=== PATIENT | male | born 1975 | race Caucasian/White ===

== ENCOUNTER 2018-07-15 01:58 | Emergency (ER) | payer OTHER ==
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
[2018-07-15 03:02] VITALS: BP 102/69; PULSE 76; TEMP 98; BMI 22.8
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
[2018-07-15] MEDS ORDERED: SODIUM CHLORIDE FOR INHALATION 3 ML VIAL.NEB IH ONE (03:13)
== END 2018-07-15 03:57 | disposition home or self-care (01) ==
LOC: JER 01:58
PROC: 3E0F7GC Introduction of Other Therapeutic Substance into Respiratory Tract, Via Natural or Artificial Opening (ICD-10-PCS; principal; 2018-07-15)
DX: T59.811A Toxic effect of smoke, accidental (unintentional), initial encounter (principal); J70.5 Respiratory conditions due to smoke inhalation; Y92.030 Kitchen in apartment as the place of occurrence of the external cause
CPT/HCPCS: 99281-25

== ENCOUNTER 2018-12-17 11:25 | Emergency (ER) | payer OTHER ==
[2018-12-17 11:32] VITALS: TEMP 98; BMI 21.6
[2018-12-17] MEDS ORDERED: FAMOTIDINE 20 MG/50 ML IVPB 20 MG/50 ML MG IVPB ONE ×2 (12:44→12:51)
[2018-12-17] MEDS ORDERED: ONDANSETRON *ODT* 4 MG TABLET SL ONE (12:44)
[2018-12-17] MEDS ORDERED: SODIUM CHLORIDE 1,000 ML IV STA (12:44)
[2018-12-17] MEDS ORDERED: ONDANSETRON *ODT* 4 MG TABLET ONE (12:51)
--- NOTE | 2018-12-17 13:08 | PDOC ---
History of Present Illness - General Chief Complaint: Pain Stated Complaint: ABD PAIN Time Seen by Provider: 12/17/18 12:18 History Source: Patient Exam Limitations: Clinical Condition - History of Present Illness Initial Comments: 12/17/18 13:02 Patient with past medical history of GERD presented with complaint of 4-day history of epigastric pain with bubbling sound in her whole abdomen and now with nausea since yesterday. Patient reports started having shortness of breath 4 days ago when she started having epigastric pain was seen in [facility] emergency room which chest x-ray and lab work done was normal. Patient brings with him lab results which shows normal CBC and chemistry and d- dimer labs. Patient reports he was prescribed omeprazole from the ED which he started taking by stop due to making him anxious. Patient reported feeling anxious stopped after stopping omeprazole. Patient denies vomiting, fever, chills, diarrhea, constipation, chest pain, shortness of breath, dizziness or weakness. Patient report has not been able to eat anything since yesterday due to loss of appetite. Patient has appointment with GI tomorrow but could not wait due to abdominal discomfort Is this a multiple visit Asthma Patient?: No Past History - Past Medical History Allergies/Adverse Reactions: Allergies Allergy/AdvReac Type Severity Reaction Status Date / Time No Known Allergies Allergy Verified 07/15/18 03:02 Home Medications: Ambulatory Orders Mag Hydrox/Aluminum Hyd/Simeth [Maalox Advanced Suspension] 30 ml PO Q8H PRN # 200 ml 12/17/18 Ondansetron [Zofran -] 4 mg PO Q8H PRN #10 tablet 12/17/18 Pantoprazole Sodium [Protonix -] 20 mg PO DAILY #7 tablet.ec 12/17/18 Asthma: Yes (childhood, resolved) COPD: No GI Disorders: Yes (GERD) - Immunization History Immunization Up to Date: Yes - Psycho Social/Smoking Cessation Hx Smoking Status: No Smoking History: Never smoked Have you smoked in the past 12 months: No Number of Cigarettes Smoked Daily: 0 Cigars Per Day: 0 Information on smoking cessation initiated: No Hx Alcohol Use: No Drug/Substance Use Hx: No Substance Use Type: None Review of Systems - Review of Systems Able to Perform ROS?: Yes Is the patient limited Pashto proficient: No Constitutional: No: See HPI, Chills, Malaise, Weakness HEENTM: No: Symptoms Reported, See HPI, Eye Pain, Blurred Vision, Tearing, Recent change in vision, Double Vision, Cataracts, Ear Pain, Ocular Prothesis, Ear Discharge, Nose Pain, Nose Congestion, Tinnitus, Nose Bleeding, Hearing Loss , Throat Pain, Throat Swelling, Mouth Pain, Dental Problems, Difficulty Swallowing, Mouth Swelling, Other Respiratory: No: Symptoms reported, See HPI, Cough, Orthopnea, Shortness of Breath, SOB with Exertion, SOB at Rest, Stridor, Wheezing, Productive cough, Hemoptysis, Other Cardiac (ROS): No: Symptoms Reported, See HPI, Chest Pain, Edema, Irregular Heart Rate, Lightheadedness, Palpitations, Syncope, Chest Tightness, Other ABD/GI: Yes: Symptoms Reported, See HPI, Nausea, Poor Appetite, Abdominal cramping (epigastric). No: Abdominal Distended, Abd. Pain w/ defecation, Blood Streaked Bowels, Constipated, Diarrhea, Difficulty Swallowing, Poor Fluid Intake , Rectal Bleeding, Vomiting, Indigestion : No: Burning, Discharge, Frequency, Urgency All Other Systems: Reviewed and Negative *Physical Exam - Vital Signs Last Vital Signs Temp Pulse Resp BP Pulse Ox 98.0 F 89 17 125/80 99 12/17/18 11:29 12/17/18 11:29 12/17/18 11:29 12/17/18 11:29 12/17/18 11:29 - Physical Exam Comments: 12/17/18 13:06 GENERAL: Well developed, well nourished. Awake and alert. No acute distress. NECK: Supple. Full ROM. CARDIOVASCULAR: Regular rate and rhythm. No murmurs, rubs, or gallops. Distal pulses are 2+ and symmetric. PULMONARY: No evidence of respiratory distress. Lungs clear to auscultation bilaterally. No wheezing, rales or rhonchi. ABDOMINAL: Soft. Mild epigastric tenderness on deep palpation. Non-distended. No rebound or guarding. No organomegaly. Normoactive bowel sounds. MUSCULOSKELETAL Normal range of motion at all joints. SKIN: Warm and dry. Normal capillary refill. No rashes. No cyanosis NEUROLOGICAL: Alert, awake, appropriate. Gait is normal without ataxia. PSYCHIATRIC: Cooperative. Good eye contact. Appropriate mood General Appearance: Yes: Nourished, Appropriately Dressed. No: Apparent Distress ED Treatment Course - LABORATORY CBC & Chemistry Diagram: 12/17/18 12:46 12/17/18 12:46 - RADIOLOGY Radiology Studies Ordered: Category Date Time Status ABDOMEN US -LIMITED [US] Stat Ultrasound 12/17/18 12:44 Ordered Medical Decision Making - Medical Decision Making 12/17/18 13:06 Patient with history of GERD presented with complaint of 4-day history of persistent epigastric pain with nausea and episode of shortness of breath 4 days ago which have resolved. Patient seen in another ED 4 days ago for symptoms with no findings. Patient have GI appointment tomorrow. Exam significant for mild tenderness to epigastric region on deep palpation without guarding or rebound otherwise normal exam. Normal bowel sounds diffusely. Symptoms likely GERD versus gastritis versus less likely cholecystitis. CBC, CMP, lipase level ordered. Abdominal ultrasound ordered to rule out cholecystitis. IV hydration with 1 L normal saline and Pepcid 20 mg IV ordered for epigastric pain. Zofran 4 mg sublingual ordered for nausea. Treat based on lab and imaging results 12/17/18 15:43 CBC and chemistry unremarkable. Abdominal ultrasound pending reading. Patient was improvement in pain post IV hydration and IV Pepcid 12/17/18 16:10 abd U/S unremarkable. Patient symptoms likely gastritis and stable for discharge on protonix and maalox as needed for abd discomfort with GI f/u tomorrow as scheduled Discharge - Discharge Information Problems reviewed: Yes Clinical Impression/Diagnosis: Nausea Abdominal pain Qualifiers: Abdominal location: epigastric Qualified Code(s): R10.13 - Epigastric pain Condition: Stable Disposition: HOME - Admission No - Additional Discharge Information Prescriptions: Mag Hydrox/Aluminum Hyd/Simeth [Maalox Advanced Suspension] 30 ml PO Q8H PRN # 200 ml PRN Reason: abdominal discomfort Ondansetron [Zofran -] 4 mg PO Q8H PRN #10 tablet PRN Reason: vomiting Pantoprazole Sodium [Protonix -] 20 mg PO DAILY #7 tablet.ec - Follow up/Referral Referrals: Mendoza Fry MD [Staff Physician] - - Patient Discharge Instructions Additional Instructions: Your labs and abdominal ultrasound was normal. Your symptoms could be caused by gastritis. Take prescribed medication as prescribed. Follow-up with GI doctor tomorrow as scheduled. Increase fluid intake. - Post Discharge Activity
[2018-12-17 13:25] LABS: BASO % 0.5 % (0-2.0); EOS % 0.5 % (0-4.5); HEMATOCRIT 39.4 % (35.4-49); HEMOGLOBIN 13.4 GM/dL (11.7-16.9); LYMPH % 23.3 % (8-40); MCH 34.1 pg (25.7-33.7); MCHC 34.1 g/dl (32.0-35.9); MEAN PLT VOLUME 8.6 fl (7.5-11.1); NEUT % 67.7 % (42.8-82.8); PLATELET COUNT 315 K/MM3 (134-434); RBC 3.94 M/mm3 (4.00-5.60); RDW 11.9 % (11.9-15.9); WHITE BLOOD COUNT 4.3 K/mm3 (4.0-10.0)
[2018-12-17 13:52] LABS: ALBUMIN 4.6 g/dl (3.4-5.0); BILIRUBIN,TOTAL 0.9 mg/dL (0.2-1); BLOOD UREA NITROGEN 9.8 mg/dL (7-18); CALCIUM 9.5 mg/dL (8.5-10.1); CREATININE 0.8 mg/dL (0.55-1.3); POTASSIUM 3.9 mmol/L (3.5-5.1); TOT PROT 7.6 g/dl (6.4-8.2)
[2018-12-17 16:03] VITALS: BP 108/66; PULSE 77
== END 2018-12-17 16:03 | disposition home or self-care (01) ==
LOC: JER 11:25
PROC: 3E0337Z Introduction of Electrolytic and Water Balance Substance into Peripheral Vein, Percutaneous Approach (ICD-10-PCS; principal; 2018-12-17)
DX: R10.13 Epigastric pain (principal); K21.9 Gastro-esophageal reflux disease without esophagitis; J45.909 Unspecified asthma, uncomplicated
CPT/HCPCS: 36415; 76705-TC; 80053; 83690; 85025; 99283-25; J7030; Q0162

== ENCOUNTER 2019-11-20 20:14 | Emergency (ER) | payer OTHER ==
[2019-11-20 20:22] VITALS: TEMP 98.8; BMI 22.8
--- NOTE | 2019-11-20 20:39 | PDOC ---
History of Present Illness - General Chief Complaint: Lightheaded Stated Complaint: LIGHTHEADED/EVALUATION Time Seen by Provider: 11/20/19 20:39 History Source: Patient Exam Limitations: No Limitations - History of Present Illness Initial Comments: 11/20/19 20:47 HPI: This is a 44 y/o male with no significant PMH presenting to the ED today because of an episode of "lightheadedness" that began 30 minutes prior to arrival to the ED. He was bringing pizzas into his family's house and when he was staring at the TV he said everything started to feel "strange." He said it felt like things might started to spin. He denied any accompanying chest pain, palpitations, SOB, or headache at the time. He drove himself home, but when he got there he started feeling worse. He didn't feel like he could drive anymore, and called his sister to bring him to the ED. He has had these episodes before and had been worked up for them, and admits to an anxiety component. Today's episode was similar to previous episodes, except with previous episodes he has been able to stop them. He was worked up a year ago for similar symptoms. He saw an ENT who said that it wasn't vertigo. He also saw neuro who did a CT scan which came back normal. Carotid doppler was also negative. He had many episodes at the beginning of this year when he had Covid. ROS: GENERAL/CONSTITUTIONAL: No fever/chills. No weakness. HEAD, EYES, EARS, NOSE AND THROAT: No change in vision. . CARDIOVASCULAR: No chest pain or shortness of breath. RESPIRATORY: No cough, wheezing, or hemoptysis. GASTROINTESTINAL: No nausea, vomiting, diarrhea or constipation. GENITOURINARY: No dysuria, frequency, or change in urination. MUSCULOSKELETAL: No joint or muscle swelling or pain. No neck or back pain. SKIN: No rash NEUROLOGIC: No headache, vertigo, loss of consciousness, or change in strength/sensation. ENDOCRINE: No increased thirst. No abnormal weight change. HEMATOLOGIC/LYMPHATIC: No anemia, easy bleeding, or history of blood clots. ALLERGIC/IMMUNOLOGIC: No hives or skin allergy. PMH: Denied PSx: Denied Social Hx: Denied etoh, tobacco, and drugs Meds: Denied Allergies: KNDA PE: GENERAL: Awake, alert, and fully oriented, in no acute distress. Sitting in bed conversational. Non-toxic appearing. HEAD: No signs of trauma EYES: PERRLA, EOMI ENT: Auricles normal inspection, hearing grossly normal, nares patent, oropharynx clear without exudates. Moist mucosa NECK: Normal ROM, supple LUNGS: Breath sounds equal, clear to auscultation bilaterally. No wheezes, and no crackles HEART: Regular rate and rhythm, normal S1 and S2, no murmurs, rubs or gallops ABDOMEN: Soft, nontender, normoactive bowel sounds. s EXTREMITIES: Normal range of motion, no edema. NEUROLOGICAL: Cranial nerves II through XII grossly intact. Normal speech, normal gait. No focal neurologic deficits. MDM: 11/20/19 21:17 -This is a 44 y/o male with no significant PMH presenting to the ED today because of an episode of "lightheadedness" that began 30 minutes prior to arrival to the ED. -He was worked up a year ago for similar symptoms. He saw an ENT who said that it wasn't vertigo. He also saw neuro who did a CT scan which came back normal. Carotid doppler was also negative. - Vital signs all WNL - Patient admits that these episodes have an anxiety component. - No chest pain, palpitations or SOB at the time so less concerned for cardiac etiology. - No focal neurological deficits, no nystagmus, recent CT scan was fine. - Will do basic workup including EKG, CBC, CMP to check for arrhythmia, anemia, electrolyte abnormalities - EKG no ST elevations or T wave inversions. Sinus rhythm. Vent rate 76 bpm. Labs notable for: - AST 105 - ALT 271 Possible viral infection - Gave 50 Meclizine in ED and will d/c with 15 to take as needed. - Patient stable for d/c Past History - Medical History Allergies/Adverse Reactions: Allergies Allergy/AdvReac Type Severity Reaction Status Date / Time No Known Allergies Allergy Verified 05/25/19 08:13 Home Medications: Ambulatory Orders Mag Hydrox/Aluminum Hyd/Simeth [Maalox Advanced Suspension] 30 ml PO Q8H PRN #200 ml 12/17/18 Ondansetron [Zofran -] 4 mg PO Q8H PRN #10 tablet 12/17/18 Pantoprazole Sodium [Protonix -] 20 mg PO DAILY #7 tablet.ec 12/17/18 Meclizine HCl [Antivert -] 25 mg PO QID PRN #30 tablet 11/20/19 Asthma: Yes (childhood, resolved) COPD: No GI Disorders: Yes (GERD) - Immunization History Immunization Up to Date: Yes - Psycho-Social/Smoking History Smoking Status: No Smoking History: Never smoked Have you smoked in the past 12 months: No Number of Cigarettes Smoked Daily: 0 Cigars Per Day: 0 - Substance Abuse Hx (Audit-C & DAST Scrn) How often the patient has a drink containing alcohol: Never Score: In Men: 4 or > Positive; In Women: 3 or > Positive: 0 Screen Result (Pos requires Nsg. Audit-10AR): Negative In the last yr the pt used illegal drug/Rx for NonMed reason: No Score: Yes response is considered Positive: 0 Screen Result (Positive result requires Nsg. DAST-10): Negative *Physical Exam - Vital Signs Last Vital Signs Temp Pulse Resp BP Pulse Ox 98.8 F 80 19 125/90 100 11/20/19 20:19 11/20/19 20:19 11/20/19 20:19 11/20/19 20:19 11/20/19 20:19 Heart Score/ECG Review - ECG Intrepretation Comment:: 11/20/19 22:[address] elevations or T wave inversions. Normal sinus rhythm. Vent rate 76bpm. NV interval 152ms. QRS duration 82ms. QT/QTc 364/409 ms ED Treatment Course - LABORATORY CBC & Chemistry Diagram: 11/20/19 21:30 11/20/19 21:30 Discharge - Discharge Information Problems reviewed: Yes Clinical Impression/Diagnosis: Vertigo Condition: Improved Disposition: HOME - Admission No - Additional Discharge Information Prescriptions: Meclizine HCl [Antivert -] 25 mg PO QID PRN #30 tablet PRN Reason: dizziness - Follow up/Referral Referrals: Nadir Buchanan MD [Primary Care Provider] - - Patient Discharge Instructions Patient Printed Discharge Instructions: Benign Paroxysmal Positional Vertigo, DI for Vertigo Additional Instructions: You were seen in the ED today because of "lightheadedness." Your lab work and EKG did not show any concerning abnormalities although they did show slightly elevated liver enzymes. Liver enzymes can be elevated for a variety of reasons, including benign viral illnesses. They can also precede vertigo. We have given you Meclizine in the ED, and also discharged you with a prescription for them sent to your pharmacy. Please return to the ED with any new or concerning symptoms. Please return if you have any loss of consciousness, weakness, or numbness. - Post Discharge Activity
--- NOTE | 2019-11-20 20:45 | PDOC ---
Attending Attestation - Resident Resident Name: Nell Haddad - ED Attending Attestation I have performed the following: I have examined & evaluated the patient, The case was reviewed & discussed with the resident, I agree w/resident's findings & plan - HPI HPI: 11/20/19 22:29 Pt comes with dizziness. He has had vertigo in the past. - Physicial Exam PE: 11/20/19 22:29 Normal exam HEENT Normal abd soft NT ND heart and lungs normal no flank pain neuro exam normal - Medical Decision Making 11/20/19 22:32 chem normal. LFTs slightly bumped; this goes along with the theory that viral illness led to vertigo Pt will be treated with meclizine Discharge - Discharge Information Problems reviewed: Yes Clinical Impression/Diagnosis: Vertigo Condition: Improved Disposition: HOME - Admission No - Additional Discharge Information Prescriptions: Meclizine HCl [Antivert -] 25 mg PO QID PRN #30 tablet PRN Reason: dizziness - Follow up/Referral Referrals: Nadir Buchanan MD [Primary Care Provider] - - Patient Discharge Instructions Patient Printed Discharge Instructions: Benign Paroxysmal Positional Vertigo - Post Discharge Activity
[2019-11-20 22:00] LABS: BASO % 0.3 % (0-2.0); HEMATOCRIT 37.8 % (35.4-49); HEMOGLOBIN 12.9 GM/dL (11.7-16.9); MCHC 34.2 g/dl (32.0-35.9); MEAN CELL VOLUME 102.4 fl (80-96); MEAN PLT VOLUME 8.4 fl (7.5-11.1); MONO % 7.2 % (3.8-10.2); NEUT % 72.5 % (42.8-82.8); PLATELET COUNT 260 K/MM3 (134-434); RBC 3.69 M/mm3 (4.00-5.60); RDW 12.3 % (11.9-15.9)
[2019-11-20 22:19] LABS: ALBUMIN 4.2 g/dl (3.4-5.0); BILIRUBIN,TOTAL 0.5 mg/dL (0.2-1); BLOOD UREA NITROGEN 11.9 mg/dL (7-18); CREATININE 0.8 mg/dL (0.55-1.3); POTASSIUM 3.9 mmol/L (3.5-5.1); TOT PROT 7.6 g/dl (6.4-8.2)
[2019-11-20] MEDS ORDERED: MECLIZINE HCL 25 MG TABLET (FP) PO ONE (22:25)
[2019-11-20] MEDS ORDERED: MECLIZINE HCL 25 MG TABLET (FP) ONE (22:28)
[2019-11-20 22:59] VITALS: BP 120/85; PULSE 70
--- NOTE | 2019-11-22 10:59 | EKG ---
Test Reason : Blood Pressure : / mmHG Vent. Rate : 076 BPM Atrial Rate : 076 BPM P-R Int : 152 ms QRS Dur : 082 ms QT Int : 364 ms P-R-T Axes : 072 073 050 degrees QTc Int : 409 ms NORMAL SINUS RHYTHM NORMAL ECG WHEN COMPARED WITH ECG OF 16-JAN-2012 19:11, T WAVE VARIATION Confirmed by HARJIT WARREN MD ([id number]) on 11/22/2019 10:58:55 AM Referred By: Confirmed By:HARJIT WARREN MD
== END 2019-11-20 22:52 | disposition home or self-care (01) ==
LOC: JER 20:14
DX: R42 Dizziness and giddiness (principal)
CPT/HCPCS: 36415; 80053; 85025; 93005; 93010; 99284-25

== ENCOUNTER 2023-06-19 20:20 | Emergency (ER) | payer OTHER ==
[2023-06-19 20:25] VITALS: BP 121/80; PULSE 86; RESP 20; TEMP 98.2; BMI 23.7
== END 2023-06-19 22:32 | disposition home or self-care (01) ==
LOC: JER 20:20
DX: M79.2 Neuralgia and neuritis, unspecified (principal)
CPT/HCPCS: 99283-25

== ENCOUNTER 2023-06-21 06:39 | Emergency (ER) | payer OTHER ==
[2023-06-21 06:46] VITALS: BP 143/85; PULSE 90; RESP 19; TEMP 98; BMI 23.7
== END 2023-06-21 08:31 | disposition home or self-care (01) ==
LOC: JER 06:39
DX: F41.0 Panic disorder [episodic paroxysmal anxiety] (principal); M79.604 Pain in right leg; M79.605 Pain in left leg
CPT/HCPCS: 99282-25

== ENCOUNTER 2023-06-27 17:48 | Emergency (ER) | payer OTHER ==
[2023-06-27 17:56] VITALS: BP 139/80; PULSE 91; RESP 18; TEMP 98.7; BMI 24.4
== END 2023-06-27 19:09 | disposition home or self-care (01) ==
LOC: JERFT 17:48 → JER 17:48 → JERFT 19:09
DX: F41.9 Anxiety disorder, unspecified (principal); G47.00 Insomnia, unspecified; R14.0 Abdominal distension (gaseous); K21.9 Gastro-esophageal reflux disease without esophagitis
CPT/HCPCS: 99283-25